=== PATIENT | male | born 1955 ===

== ENCOUNTER 2020-07-04 11:43 | Inpatient (IN) ==
[2020-07-04 15:29] LABS: ABS Lymphocytes 0.8 10^3/ul (1.0-4.8); Hematocrit 45 % (42-52); Hemoglobin 15.2 g/dL (14.0-18.0); Mean Corpuscular HGB Conc 33 g/dL (31-36); Mean Corpuscular Hemoglobin 29 pg (27-31); Mean Corpuscular Volume 86 fL (80-94); Mean Platelet Volume 10.7 fL (7.4-10.4); Platelet Count 106 10^3/uL (150-450); Red Cell Distribution Width 14 % (10-15); White Blood Count 4.2 10^3/uL (3.5-10.8)
[2020-07-04 15:30] LABS: ABS Monocytes 0.3 10^3/ul (0-0.8); Lymphocyte % 19.2 %; Nucleated Red Blood Cells % 0.1
[2020-07-04 16:01] LABS: ALT 31 U/L (7-52); AST 30 U/L (13-39); Albumin/Globulin Ratio 1.4 (1-3); Alkaline Phosphatase 93 U/L (34-104); Anion Gap 11 mmol/L (2-11); BUN/Creatinine Ratio 20.9 (8-20); Blood Urea Nitrogen 28 mg/dL (6-24); CO2 Carbon Dioxide 29 mmol/L (22-32); Calcium 8.8 mg/dL (8.6-10.3); Chloride 94 mmol/L (101-111); EGFR African American 65.1 (>60); EGFR Non-African American 53.8 (>60); Globulin 2.9 g/dL (2-4); Potassium 4.4 mmol/L (3.5-5.0); Sodium 134 mmol/L (135-145); Total Protein 6.9 g/dL (6.4-8.9)
[2020-07-04 16:02] LABS: Glucose 536 mg/dL (70-100); Troponin I 0.05 ng/mL (<0.03)
[2020-07-04] MEDS ORDERED: NS 0.9% 1000 ml BAG 1,000 ML IV ONE (16:11)
[2020-07-04] MEDS ORDERED: Dextrose 50% Syringe 50 ml 25 GM/50 ML SYRINGE IV PUSH PRN (17:56)
[2020-07-04] MEDS ORDERED: NS 0.9% 1000 ml BAG 1,000 ML IV SCH (18:30)
[2020-07-04 19:34] LABS: Troponin I 0.06 ng/mL (<0.03)
[2020-07-04 19:46] LABS: Glucose Confirmatory 458 mg/dL (70-100)
[2020-07-04] MEDS ORDERED: Remdesivir 100 mg Vial 200 MG in NS 0.9% 250 ml 210 ML IV ONE (21:00)
[2020-07-04] MEDS ORDERED: Insulin GLARGINE 100 un/ml 10 ml VIAL SUBCUT SCH (21:00)
[2020-07-04 22:27] LABS: Troponin I 0.06 ng/mL (<0.03)
[2020-07-04] MEDS: Enoxaparin 40 MG/0.4 ML SYR SUBCUT SCH (23:32)
[2020-07-05 01:32] LABS: Glucose Confirmatory 570 mg/dL (70-100)
[2020-07-05] MEDS ORDERED: Dextrose 50% Syringe 50 ml 25 GM/50 ML SYRINGE IV PUSH PRN (01:38)
[2020-07-05 05:56] LABS: Hematocrit 40 % (42-52); Hemoglobin 13.3 g/dL (14.0-18.0); Mean Corpuscular HGB Conc 34 g/dL (31-36); Mean Corpuscular Hemoglobin 29 pg (27-31); Mean Corpuscular Volume 85 fL (80-94); Mean Platelet Volume 10.6 fL (7.4-10.4); Platelet Count 102 10^3/uL (150-450); Red Blood Count 4.68 10^6 /uL (4.18-5.48); Red Cell Distribution Width 14 % (10-15); White Blood Count 4.2 10^3/uL (3.5-10.8)
[2020-07-05 05:58] LABS: ABS Lymphocytes 0.7 10^3/ul (1.0-4.8); ABS Monocytes 0.3 10^3/ul (0-0.8); ABS Neutrophils 3.2 10^3/ul (1.5-7.7); Lymphocyte % 17.4 %; Nucleated Red Blood Cells % 0.1
[2020-07-05 06:21] LABS: BUN/Creatinine Ratio 23.5 (8-20); Calcium 7.7 mg/dL (8.6-10.3); EGFR African American 77.7 (>60); EGFR Non-African American 64.2 (>60); Potassium 4.4 mmol/L (3.5-5.0)
[2020-07-05 06:24] LABS: Glucose Confirmatory 502 mg/dL (70-100)
[2020-07-05 08:25] LABS: Glucose Confirmatory 466 mg/dL (70-100)
[2020-07-05] MEDS: Insulin GLARGINE 100 un/ml 10 ml VIAL SUBCUT SCH ×2 (09:02→22:45)
[2020-07-05 22:03] LABS: Glucose Confirmatory 446 mg/dL (70-100)
[2020-07-05] MEDS: Enoxaparin 40 MG/0.4 ML SYR SUBCUT SCH (22:43)
[2020-07-05] MEDS: Remdesivir 100 mg Vial 100 MG in NS 0.9% 250 ml 230 ML IV SCH (22:45)
[2020-07-06 05:59] LABS: ABS Lymphocytes 1.5 10^3/ul (1.0-4.8); ABS Monocytes 0.6 10^3/ul (0-0.8); ABS Neutrophils 6.4 10^3/ul (1.5-7.7); Hematocrit 41 % (42-52); Lymphocyte % 17.7 %; Mean Corpuscular HGB Conc 34 g/dL (31-36); Mean Corpuscular Hemoglobin 29 pg (27-31); Mean Corpuscular Volume 84 fL (80-94); Mean Platelet Volume 10.7 fL (7.4-10.4); Platelet Count 130 10^3/uL (150-450); Red Blood Count 4.91 10^6 /uL (4.18-5.48); Red Cell Distribution Width 14 % (10-15); White Blood Count 8.5 10^3/uL (3.5-10.8)
[2020-07-06 06:19] LABS: Anion Gap 9 mmol/L (2-11); BUN/Creatinine Ratio 28.7 (8-20); Blood Urea Nitrogen 29 mg/dL (6-24); CO2 Carbon Dioxide 27 mmol/L (22-32); Calcium 8.4 mg/dL (8.6-10.3); Chloride 104 mmol/L (101-111); EGFR African American 90.3 (>60); EGFR Non-African American 74.6 (>60); Glucose 210 mg/dL (70-100); Potassium 4.3 mmol/L (3.5-5.0); Sodium 140 mmol/L (135-145)
[2020-07-06 08:41] LABS: Troponin I 0.04 ng/mL (<0.03)
[2020-07-06] MEDS: Insulin GLARGINE 100 un/ml 10 ml VIAL SUBCUT SCH ×2 (09:31→21:29)
[2020-07-06] MEDS ORDERED: NS 0.9% 1000 ml BAG 1,000 ML IV SCH (11:45)
[2020-07-06 17:49] LABS: Glucose Confirmatory 408 mg/dL (70-100)
[2020-07-06 20:51] LABS: Glucose Confirmatory 452 mg/dL (70-100)
[2020-07-06] MEDS: Enoxaparin 40 MG/0.4 ML SYR SUBCUT SCH (21:30)
[2020-07-06] MEDS: Remdesivir 100 mg Vial 100 MG in NS 0.9% 250 ml 230 ML IV SCH (21:32)
[2020-07-07] MEDS ORDERED: Insulin GLARGINE 100 un/ml 10 ml VIAL SUBCUT ONE (00:58)
[2020-07-07 06:29] LABS: Albumin 3.3 g/dL (3.2-5.2); Albumin/Globulin Ratio 1.2 (1-3); BUN/Creatinine Ratio 31.6 (8-20); Calcium 8.3 mg/dL (8.6-10.3); EGFR African American 96.9 (>60); EGFR Non-African American 80.1 (>60); Globulin 2.8 g/dL (2-4); Potassium 4.2 mmol/L (3.5-5.0); Total Bilirubin 0.6 mg/dL (0.2-1.0); Total Protein 6.1 g/dL (6.4-8.9)
[2020-07-07] MEDS: Insulin GLARGINE 100 un/ml 10 ml VIAL SUBCUT SCH ×2 (09:15→21:26)
[2020-07-07] MEDS ORDERED: NS 0.9% 1000 ml BAG 1,000 ML IV SCH (13:15)
[2020-07-07] MEDS: Enoxaparin 40 MG/0.4 ML SYR SUBCUT SCH (21:25)
[2020-07-07] MEDS: Remdesivir 100 mg Vial 100 MG in NS 0.9% 250 ml 230 ML IV SCH (21:26)
[2020-07-08 01:09] LABS: Glucose Confirmatory 420 mg/dL (70-100)
[2020-07-08 06:14] LABS: Albumin 3.1 g/dL (3.2-5.2); Albumin/Globulin Ratio 1.2 (1-3); BUN/Creatinine Ratio 33.3 (8-20); EGFR African American 103.1 (>60); EGFR Non-African American 85.2 (>60); Globulin 2.6 g/dL (2-4); Total Bilirubin 0.5 mg/dL (0.2-1.0); Total Protein 5.7 g/dL (6.4-8.9)
[2020-07-08] MEDS: Insulin GLARGINE 100 un/ml 10 ml VIAL SUBCUT SCH ×2 (09:51→21:10)
[2020-07-08 17:54] LABS: Glucose Confirmatory 467 mg/dL (70-100)
[2020-07-08 20:44] LABS: Glucose Confirmatory 422 mg/dL (70-100)
[2020-07-08] MEDS: Enoxaparin 40 MG/0.4 ML SYR SUBCUT SCH (21:09)
[2020-07-08] MEDS: Remdesivir 100 mg Vial 100 MG in NS 0.9% 250 ml 230 ML IV SCH (22:00)
[2020-07-09 06:49] LABS: Hematocrit 41 % (42-52); Hemoglobin 13.7 g/dL (14.0-18.0); Mean Corpuscular HGB Conc 33 g/dL (31-36); Mean Corpuscular Hemoglobin 28 pg (27-31); Mean Corpuscular Volume 85 fL (80-94); Mean Platelet Volume 10.5 fL (7.4-10.4); Platelet Count 191 10^3/uL (150-450); Red Blood Count 4.82 10^6 /uL (4.18-5.48); Red Cell Distribution Width 14 % (10-15); White Blood Count 11.8 10^3/uL (3.5-10.8)
[2020-07-09 07:08] LABS: BUN/Creatinine Ratio 29.6 (8-20); Calcium 8.2 mg/dL (8.6-10.3); EGFR African American 93.5 (>60); EGFR Non-African American 77.2 (>60); Potassium 4.1 mmol/L (3.5-5.0)
[2020-07-09 07:33] LABS: ABS Lymphocytes 1.4 10^3/ul (1.0-4.8); ABS Monocytes 0.8 10^3/ul (0-0.8); ABS Neutrophils 9.6 10^3/ul (1.5-7.7); Eosinophil % 0.1 %; Lymphocyte % 11.5 %
[2020-07-09] MEDS: Insulin GLARGINE 100 un/ml 10 ml VIAL SUBCUT SCH ×2 (09:25→21:51)
[2020-07-09] MEDS: cefTRIAXone 1 gm/50 mL NS BAG 1 GM/50 ML BAG IVPB SCH (18:38)
[2020-07-09] MEDS: Azithromycin 500 mg/250 ml NS 500 MG/250 ML BAG IVPB SCH (20:37)
[2020-07-09] MEDS: Enoxaparin 40 MG/0.4 ML SYR SUBCUT SCH (20:47)
[2020-07-09] MEDS ORDERED: Metformin ER 750 mg TAB (NF) PO SCH (21:00)
[2020-07-10 11:18] LABS: ABS Basophils 0.1 10^3/ul (0-0.2); ABS Eosinophils 0.1 10^3/ul (0-0.6); ABS Lymphocytes 1.5 10^3/ul (1.0-4.8); ABS Monocytes 0.8 10^3/ul (0-0.8); ABS Neutrophils 13.7 10^3/ul (1.5-7.7); Eosinophil % 0.4 %; Hematocrit 43 % (42-52); Hemoglobin 14.3 g/dL (14.0-18.0); Lymphocyte % 9.2 %; Mean Corpuscular HGB Conc 33 g/dL (31-36); Mean Corpuscular Hemoglobin 28 pg (27-31); Mean Corpuscular Volume 85 fL (80-94); Mean Platelet Volume 9.9 fL (7.4-10.4); Platelet Count 206 10^3/uL (150-450); Red Blood Count 5.09 10^6 /uL (4.18-5.48); Red Cell Distribution Width 14 % (10-15); White Blood Count 16.2 10^3/uL (3.5-10.8)
[2020-07-10 11:55] LABS: BUN/Creatinine Ratio 28.7 (8-20); Calcium 8.4 mg/dL (8.6-10.3); EGFR African American 107.2 (>60); EGFR Non-African American 88.6 (>60); Potassium 4.1 mmol/L (3.5-5.0)
[2020-07-10 12:16] LABS: C Reactive Protein 132.79 mg/L (<8.01)
[2020-07-10] MEDS ORDERED: Dextrose 50% Syringe 50 ml 25 GM/50 ML SYRINGE IV PUSH PRN (14:42)
[2020-07-10] MEDS: Azithromycin 500 mg/250 ml NS 500 MG/250 ML BAG IVPB SCH (21:00)
[2020-07-10] MEDS: Enoxaparin 40 MG/0.4 ML SYR SUBCUT SCH (21:01)
[2020-07-10] MEDS: cefTRIAXone 1 gm/50 mL NS BAG 1 GM/50 ML BAG IVPB SCH (22:46)
[2020-07-11] MEDS: Insulin GLARGINE 100 un/ml 10 ml VIAL SUBCUT SCH (00:03)
[2020-07-11 07:05] LABS: ABS Eosinophils 0.2 10^3/ul (0-0.6); ABS Lymphocytes 1.3 10^3/ul (1.0-4.8); ABS Monocytes 0.9 10^3/ul (0-0.8); ABS Neutrophils 13.2 10^3/ul (1.5-7.7); Eosinophil % 1.5 %; Hematocrit 42 % (42-52); Hemoglobin 13.6 g/dL (14.0-18.0); Lymphocyte % 8.2 %; Mean Corpuscular HGB Conc 33 g/dL (31-36); Mean Corpuscular Hemoglobin 28 pg (27-31); Mean Corpuscular Volume 87 fL (80-94); Mean Platelet Volume 10.2 fL (7.4-10.4); Platelet Count 210 10^3/uL (150-450); Red Blood Count 4.84 10^6 /uL (4.18-5.48); Red Cell Distribution Width 14 % (10-15); White Blood Count 15.6 10^3/uL (3.5-10.8)
[2020-07-11 07:17] LABS: CO2 Carbon Dioxide 21 mmol/L (22-32); Calcium 8.1 mg/dL (8.6-10.3); Chloride 100 mmol/L (101-111); Sodium 131 mmol/L (135-145)
[2020-07-11 07:23] LABS: BUN/Creatinine Ratio 22.5 (8-20); Blood Urea Nitrogen 20 mg/dL (6-24); C Reactive Protein 203.99 mg/L (<8.01); EGFR African American 104.5 (>60); EGFR Non-African American 86.3 (>60); Glucose 279 mg/dL (70-100)
[2020-07-11 07:48] LABS: Anion Gap 10 mmol/L (2-11)
[2020-07-11 20:02] LABS: Glucose Confirmatory 541 mg/dL (70-100)
[2020-07-11] MEDS: Enoxaparin 40 MG/0.4 ML SYR SUBCUT SCH (20:39)
[2020-07-11] MEDS: Azithromycin 500 mg/250 ml NS 500 MG/250 ML BAG IVPB SCH (20:39)
[2020-07-11] MEDS ORDERED: Insulin GLARGINE 100 un/ml 10 ml VIAL SUBCUT SCH (21:00)
[2020-07-11] MEDS: cefTRIAXone 1 gm/50 mL NS BAG 1 GM/50 ML BAG IVPB SCH (21:57)
[2020-07-12 07:53] LABS: ABS Lymphocytes 1.2 10^3/ul (1.0-4.8); ABS Monocytes 0.7 10^3/ul (0-0.8); ABS Neutrophils 13.8 10^3/ul (1.5-7.7); Eosinophil % 0.2 %; Hematocrit 42 % (42-52); Hemoglobin 13.7 g/dL (14.0-18.0); Lymphocyte % 7.8 %; Mean Corpuscular HGB Conc 33 g/dL (31-36); Mean Corpuscular Hemoglobin 28 pg (27-31); Mean Corpuscular Volume 85 fL (80-94); Platelet Count 267 10^3/uL (150-450); Red Blood Count 4.86 10^6 /uL (4.18-5.48); Red Cell Distribution Width 14 % (10-15); White Blood Count 15.8 10^3/uL (3.5-10.8)
[2020-07-12 08:07] LABS: BUN/Creatinine Ratio 29.5 (8-20); Calcium 8.6 mg/dL (8.6-10.3); EGFR African American 96.9 (>60); EGFR Non-African American 80.1 (>60); Potassium 4.7 mmol/L (3.5-5.0)
[2020-07-12 13:43] LABS: Glucose Confirmatory 427 mg/dL (70-100)
[2020-07-12 19:54] LABS: Glucose Confirmatory 554 mg/dL (70-100)
[2020-07-12] MEDS ORDERED: Insulin GLARGINE 100 un/ml 10 ml VIAL SUBCUT SCH (21:00)
[2020-07-12] MEDS: Enoxaparin 40 MG/0.4 ML SYR SUBCUT SCH (21:06)
[2020-07-12] MEDS: Insulin GLARGINE 100 un/ml 10 ml VIAL SUBCUT SCH (21:06)
[2020-07-12] MEDS: cefTRIAXone 1 gm/50 mL NS BAG 1 GM/50 ML BAG IVPB SCH (21:09)
[2020-07-12] MEDS: Azithromycin 500 mg/250 ml NS 500 MG/250 ML BAG IVPB SCH (22:10)
[2020-07-12 23:06] LABS: Glucose Confirmatory 600 mg/dL (70-100)
[2020-07-12] MEDS ORDERED: Dextrose 50% Syringe 50 ml 25 GM/50 ML SYRINGE IV PUSH PRN (23:10)
[2020-07-13 01:42] LABS: Glucose Confirmatory 482 mg/dL (70-100)
[2020-07-13 02:48] LABS: Anion Gap 8 mmol/L (2-11); BUN/Creatinine Ratio 33.3 (8-20); Blood Urea Nitrogen 31 mg/dL (6-24); CO2 Carbon Dioxide 22 mmol/L (22-32); Calcium 8.5 mg/dL (8.6-10.3); Chloride 100 mmol/L (101-111); EGFR African American 99.3 (>60); EGFR Non-African American 82.1 (>60); Glucose 483 mg/dL (70-100); Potassium 4.5 mmol/L (3.5-5.0); Sodium 130 mmol/L (135-145)
[2020-07-13 17:33] LABS: Glucose Confirmatory 562 mg/dL (70-100)
[2020-07-13] MEDS: cefTRIAXone 1 gm/50 mL NS BAG 1 GM/50 ML BAG IVPB SCH (21:39)
[2020-07-13] MEDS: Enoxaparin 40 MG/0.4 ML SYR SUBCUT SCH (21:39)
[2020-07-13] MEDS: Insulin GLARGINE 100 un/ml 10 ml VIAL SUBCUT SCH (21:41)
[2020-07-13] MEDS: Azithromycin 500 mg/250 ml NS 500 MG/250 ML BAG IVPB SCH (22:18)
[2020-07-14 00:30] LABS: Glucose Confirmatory 511 mg/dL (70-100)
[2020-07-14 11:49] VITALS: BP 125/75
== END 2020-07-14 15:20 | disposition home or self-care (01) | DRG 137 ==
LOC: ED 11:43 → MED 11:43 → OBSVTOIN 17:52 → MED 23:05
PROVIDERS: ADMIT Internal Medicine; ATTEND Internal Medicine